=== PATIENT | female | born 1975 | race Caucasian/White ===

== ENCOUNTER 2023-06-18 23:38 | Emergency (ER) | payer OTHER ==
[~2023-06-18] VITALS: Ht 162.6 cm; Wt 60.0 kg
[2023-06-19 00:05] VITALS: TEMP 98.3
[2023-06-19] MEDS ORDERED: ROPI0.5T37 PO (00:19)
[2023-06-19] MEDS ORDERED: GABA-1181 PO (00:19)
[2023-06-19] MEDS ORDERED: QUET100T34 PO (00:19)
[2023-06-19] MEDS ORDERED: SERT-439 PO (00:19)
[2023-06-19] MEDS ORDERED: KETOROLAC TROMETHAMINE 60 MG/2 ML VIAL IM ONE (01:00)
[2023-06-19 01:10] VITALS: BP 126/84; PULSE 88; RESP 20
[2023-06-19] MEDS ORDERED: IBUP-1554 PO (02:34)
[2023-06-19] MEDS ORDERED: METH-812 PO (02:34)
[2023-06-19] MEDS ORDERED: PERCT PO (02:34)
[2023-06-19] MEDS ORDERED: METHOCARBAMOL 500 MG TABLET PO ONE (02:45)
== END 2023-06-19 03:15 | disposition home or self-care (01) ==
LOC: EMS 23:40
DX: S30.0XXA Contusion of lower back and pelvis, initial encounter (principal); M62.830 Muscle spasm of back; F31.9 Bipolar disorder, unspecified; E78.00 Pure hypercholesterolemia, unspecified; F17.210 Nicotine dependence, cigarettes, uncomplicated; Z98.890 Other specified postprocedural states; Z88.8 Allergy status to other drugs, medicaments and biological substances; W19.XXXA Unspecified fall, initial encounter; Y93.89 Activity, other specified; Y92.89 Other specified places as the place of occurrence of the external cause; Y99.8 Other external cause status
CPT/HCPCS: 99284; 72070; 72100; 81025; 96372; J1885